=== PATIENT | male | born 1965 | race Caucasian/White ===

== ENCOUNTER 2018-11-29 17:50 | Inpatient (IN) | payer OTHER ==
[~2018-11-29] VITALS: Ht 185.4 cm; Wt 100.0 kg
[2018-11-29] MEDS ORDERED: BUPR150SR PO (18:44)
[2018-11-29] MEDS ORDERED: BREX2TAB PO (18:44)
[2018-11-29] MEDS ORDERED: LURA40 PO (18:44)
[2018-11-29] MEDS ORDERED: NALT50TA6 PO (18:44)
[2018-11-29] MEDS ORDERED: CLON.2 PO (18:48)
[2018-11-29] MEDS ORDERED: DULO60CA44 PO (18:48)
[2018-11-29] MEDS ORDERED: IBUP-2071 PO (18:48)
[2018-11-29] MEDS ORDERED: TRAZ-219 PO (18:48)
[2018-11-29] MEDS ORDERED: NICO-704 TD (18:48)
[2018-11-29] MEDS ORDERED: ONDA4 PO (18:48)
[2018-11-29] MEDS ORDERED: GABA-533 PO (18:48)
[2018-11-29] MEDS ORDERED: SIMV-260 PO (18:48)
[2018-11-29] MEDS ORDERED: BUSP15 PO (18:48)
[2018-11-29 20:15] LABS: BASOPHILS % (AUTO) 0.8 % (0.0-2.0); EOSINOPHILS % (AUTO) 4.6 % (1.0-6.0); HEMATOCRIT 36.3 % (41-53); HEMOGLOBIN 12.2 g/dL (13.5-17.5); LYMPHOCYTES % (AUTO) 37.1 % (22.0-44.0); MEAN CORPUSCULAR HEMOGLOBIN 26.8 pg (26.0-34.0); MEAN CORPUSCULAR HGB CONC 33.7 G/dL (31.0-37.0); MEAN CORPUSCULAR VOLUME 80 fL (80-100); MONOCYTES # (AUTO) 0.6 K/uL (0.1-1.0); MONOCYTES % (AUTO) 11.2 % (2.0-9.0); NEUTROPHILS # (AUTO) 2.5 K/uL (1.8-7.7); NEUTROPHILS % (AUTO) 46.3 % (40.0-70.0); PLATELET COUNT (AUTO) 247 K/uL (150-450); RED BLOOD CELL COUNT(AUTO) 4.55 MIL/uL (4.50-5.90); RED CELL DISTRIBUTION WIDTH 15.8 % (11.5-14.5)
[2018-11-29] MEDS ORDERED: ZOLPIDEM TARTRATE 10 MG TABLET PO PRN (20:30)
[2018-11-29] MEDS ORDERED: LORazepam 2 MG TABLET PO ONE (20:30)
[2018-11-29] MEDS ORDERED: HALOPERIDOL 5 MG TABLET PO PRN (20:30)
[2018-11-29] MEDS ORDERED: LORazepam 2 MG TABLET PO PRN (20:30)
[2018-11-29 20:35] LABS: ANION GAP 5 mmol/L (8-16); CARBON DIOXIDE 30 mmol/L (22-29); CHLORIDE 102 mmol/L (98-107); CREATININE 1.05 mg/dL (0.60-1.30); GLOMERULAR FILTR. RATE CALC > 60 mL/min (>60); GLUCOSE,RANDOM 93 mg/dL (70-110); POTASSIUM 4.1 mmol/L (3.5-5.1); SODIUM SERUM 137 mmol/L (136-145); UREA NITROGEN, BLOOD 12 mg/dL (7-18)
[2018-11-29 20:38] LABS: ALANINE AMINOTRANSFERASE 26 U/L (12-78); ALBUMIN 4.1 g/dL (3.4-5.0); ALKALINE PHOSPHATASE 86 U/L (46-116); ASPARTATE AMINOTRANSFERASE 21 U/L (15-37); BILIRUBIN,TOTAL 0.3 mg/dL (0.1-1.0); TOTAL PROTEIN, SERUM 7.3 g/dL (6.4-8.2)
[2018-11-29 20:43] LABS: AMPHET/METH SCREEN,URINE NEGATIVE (NEGATIVE); BARBITURATE SCREEN, URINE NEGATIVE (NEGATIVE); BENZODIAZEPINES SCREEN,URINE NEGATIVE (NEGATIVE); CANNABINOID SCREEN,URINE NEGATIVE (NEGATIVE); COCAINE SCREEN,URINE NEGATIVE (NEGATIVE); METHADONE SCREEN, URINE NEGATIVE (NEGATIVE); OPIATE SCREEN,URINE NEGATIVE (NEGATIVE)
[2018-11-29 20:45] LABS: PHENCYCLIDINE SCREEN,URINE NEGATIVE (NEGATIVE)
[2018-11-29] MEDS ORDERED: IBUPROFEN 600 MG TABLET PO ONE (22:30)
[2018-11-29 23:28] LABS: CHOLESTEROL 133 mg/dL (131-200); FREE T4 (FREE THYROXINE) 0.79 ng/dL (0.76-1.46); HDL CHOLESTEROL 66 mg/dL (40-60); LDL CHOL (CALC.) 51 mg/dL (0-130); THYROID STIMULATING HORMONE 2.67 uIU/mL (0.36-3.74); TRIGLYCERIDES 81 mg/dL (15-150)
[2018-11-30] MEDS ORDERED: PNEUMOCOCCAL VACCINE POLYVALENT 0.5 ML VIAL [PPSV23] IM ONE (00:30)
[2018-11-30 01:55] VITALS: BP 125/78
[2018-11-30] MEDS ORDERED: CloNIDine HCL 0.1 MG TABLET PO PRN (06:45)
[2018-11-30] MEDS ORDERED: DOCUSATE SODIUM 100 MG CAPSULE PO PRN (06:45)
[2018-11-30] MEDS ORDERED: ONDANSETRON HCL 4 MG TABLET PO PRN (06:45)
[2018-11-30] MEDS ORDERED: LOPERAMIDE HCL 2 MG CAPSULE PO PRN (06:45)
[2018-11-30] MEDS ORDERED: MAGNESIUM HYDROXIDE SUSPENSION 30 ML UDCUP PO PRN (06:45)
[2018-11-30] MEDS ORDERED: NICOTINE 14 MG/24 HOUR PATCH TD PRN (06:45)
[2018-11-30] MEDS ORDERED: MAG HYDROX/AL HYDROX/SIMETH ES 30 ML SUSPENSION UDCUP PO PRN (06:45)
[2018-11-30] MEDS ORDERED: ALBUTEROL SULFATE HFA 90 MCG/PUFF 8 GM INHALER IH PRN (06:45)
[2018-11-30] MEDS ORDERED: ACETAMINOPHEN 325 MG TABLET PO PRN (06:45)
[2018-11-30] MEDS ORDERED: GuaiFENesin/D-METHORPHAN [SUGAR-FREE] 200-20MG/10 ML SYRUP UDCUP PO PRN (06:45)
[2018-11-30] MEDS ORDERED: PETROLATUM,WHITE 71 GM JELLY TP PRN (06:45)
[2018-11-30 08:51] VITALS: BP 142/81
[2018-11-30] MEDS: CloNIDine HCL 0.2 MG TABLET PO SCH ×3 (08:59→20:17)
[2018-11-30] MEDS ORDERED: LORazepam 1 MG TABLET PO PRN ×2 (09:30→10:00)
[2018-11-30] MEDS: DULoxetine HCL 60 MG CAPSULE PO SCH (11:02)
[2018-11-30] MEDS: LORazepam 1 MG TABLET PO PRN ×2 (12:15→20:23)
[2018-11-30 17:30] VITALS: BP 136/79
[2018-11-30] MEDS: MIRTAZAPINE 15 MG TABLET PO SCH (20:17)
[2018-11-30] MEDS: IBUPROFEN 400 MG TABLET PO PRN (20:23)
[2018-12-01 06:24] LABS: BASOPHILS % (AUTO) 1.3 % (0.0-2.0); EOSINOPHILS % (AUTO) 5.4 % (1.0-6.0); HEMATOCRIT 37.6 % (41-53); HEMOGLOBIN 12.3 g/dL (13.5-17.5); LYMPHOCYTES # (AUTO) 1.7 K/uL (1.0-4.8); LYMPHOCYTES % (AUTO) 33.7 % (22.0-44.0); MEAN CORPUSCULAR HEMOGLOBIN 26.9 pg (26.0-34.0); MEAN CORPUSCULAR HGB CONC 32.7 G/dL (31.0-37.0); MEAN CORPUSCULAR VOLUME 82 fL (80-100); MONOCYTES # (AUTO) 0.6 K/uL (0.1-1.0); MONOCYTES % (AUTO) 13.2 % (2.0-9.0); NEUTROPHILS # (AUTO) 2.3 K/uL (1.8-7.7); NEUTROPHILS % (AUTO) 46.4 % (40.0-70.0); PLATELET COUNT (AUTO) 242 K/uL (150-450); RED BLOOD CELL COUNT(AUTO) 4.58 MIL/uL (4.50-5.90); RED CELL DISTRIBUTION WIDTH 15.7 % (11.5-14.5)
[2018-12-01 06:48] LABS: ANION GAP 3 mmol/L (8-16); CARBON DIOXIDE 33 mmol/L (22-29); CHLORIDE 103 mmol/L (98-107); CREATININE 1.12 mg/dL (0.60-1.30); GLUCOSE,RANDOM 106 mg/dL (70-110); POTASSIUM 4.5 mmol/L (3.5-5.1); SODIUM SERUM 139 mmol/L (136-145); UREA NITROGEN, BLOOD 18 mg/dL (7-18)
[2018-12-01 06:49] LABS: ALANINE AMINOTRANSFERASE 26 U/L (12-78); ALBUMIN 3.7 g/dL (3.4-5.0); ALKALINE PHOSPHATASE 83 U/L (46-116); ASPARTATE AMINOTRANSFERASE 22 U/L (15-37); BILIRUBIN,TOTAL 0.4 mg/dL (0.1-1.0); CALCIUM, TOTAL 9.2 mg/dL (8.8-10.5); CHOL/HDL RATIO 2.6 (4.2-7.3); CHOLESTEROL 134 mg/dL (131-200); GLOMERULAR FILTR. RATE CALC > 60 mL/min (>60); HDL CHOLESTEROL 52 mg/dL (40-60); LDL CHOL (CALC.) 51 mg/dL (0-130); THYROID STIMULATING HORMONE 2.41 uIU/mL (0.36-3.74); TOTAL PROTEIN, SERUM 6.6 g/dL (6.4-8.2); TRIGLYCERIDES 153 mg/dL (15-150)
[2018-12-01 09:39] VITALS: BP 108/67
[2018-12-01] MEDS: DULoxetine HCL 60 MG CAPSULE PO SCH (09:39)
[2018-12-01] MEDS: IBUPROFEN 400 MG TABLET PO PRN ×2 (09:39→22:10)
[2018-12-01] MEDS: CloNIDine HCL 0.2 MG TABLET PO SCH ×3 (09:39→18:00)
[2018-12-01] MEDS: LORazepam 1 MG TABLET PO PRN ×2 (09:40→22:10)
[2018-12-01 10:39] VITALS: BP 112/72
[2018-12-01] MEDS: MIRTAZAPINE 15 MG TABLET PO SCH (21:32)
[2018-12-01 22:01] VITALS: BP 88/49
[2018-12-01 22:09] VITALS: BP 106/61
[2018-12-01 23:07] VITALS: BP 102/64
[2018-12-02 09:00] VITALS: BP 117/76
[2018-12-02] MEDS: DULoxetine HCL 60 MG CAPSULE PO SCH (09:12)
[2018-12-02] MEDS: CloNIDine HCL 0.2 MG TABLET PO SCH ×3 (09:12→16:52)
[2018-12-02] MEDS: LORazepam 1 MG TABLET PO PRN ×2 (09:14→16:55)
[2018-12-02] MEDS: IBUPROFEN 400 MG TABLET PO PRN (09:14)
[2018-12-02 09:58] VITALS: BP 117/76
[2018-12-02 16:00] VITALS: BP 113/74
[2018-12-02] MEDS: FERROUS SULFATE 325 MG EC TABLET PO SCH (16:52)
[2018-12-02] MEDS: MIRTAZAPINE 15 MG TABLET PO SCH (21:17)
[2018-12-03 00:01] VITALS: BP 101/66
[2018-12-03] MEDS: IBUPROFEN 400 MG TABLET PO PRN ×2 (00:05→09:42)
[2018-12-03] MEDS: LORazepam 1 MG TABLET PO PRN ×2 (00:05→09:44)
[2018-12-03] MEDS: FERROUS SULFATE 325 MG EC TABLET PO SCH ×2 (06:46→11:59)
[2018-12-03] MEDS: DULoxetine HCL 60 MG CAPSULE PO SCH (09:39)
[2018-12-03] MEDS: CloNIDine HCL 0.2 MG TABLET PO SCH ×2 (09:39→13:00)
[2018-12-03 09:55] VITALS: BP 120/74
[2018-12-03] MEDS ORDERED: DULO60CA44 PO (12:53)
[2018-12-03] MEDS ORDERED: MIRT15 PO (12:53)
[2018-12-03] MEDS ORDERED: FERR-89 PO (13:08)
[2018-12-03] MEDS ORDERED: CLON.2 PO (13:08)
[2018-12-03 13:11] VITALS: BP 105/52
== END 2018-12-03 16:35 | disposition home or self-care (01) | DRG 885 ==
LOC: EMS 17:51 → AHU 22:57 → 3EI 11-30 21:06
PROVIDERS: ADMIT Psychiatry & Neurology Child & Adolescent Psychiatry; ATTEND Psychiatry & Neurology Child & Adolescent Psychiatry
DX: F33.2 Major depressive disorder, recurrent severe without psychotic features (principal); R45.851 Suicidal ideations; D64.9 Anemia, unspecified; E78.00 Pure hypercholesterolemia, unspecified; E78.5 Hyperlipidemia, unspecified; F10.10 Alcohol abuse, uncomplicated; Z71.41 Alcohol abuse counseling and surveillance of alcoholic; F11.21 Opioid dependence, in remission; F17.200 Nicotine dependence, unspecified, uncomplicated; Z71.6 Tobacco abuse counseling; F41.9 Anxiety disorder, unspecified; I10 Essential (primary) hypertension; Z79.899 Other long term (current) drug therapy
CPT/HCPCS: 83036; 84439; 84443; G0378; G0480